=== PATIENT | male | born 2000 | race Caucasian/White ===

== ENCOUNTER 2020-02-20 20:26 | Emergency (ER) | payer MEDICAID, OTHER ==
[~2020-02-20] VITALS: Ht 172.7 cm; Wt 54.7 kg
[~2020-02-20 20:26] MED LIST: INHALER PRN
[2020-02-20 20:29] VITALS: BP 114/91
[2020-02-20] MEDS ORDERED: TAM75C PO (21:18)
== END 2020-02-20 21:36 | disposition home or self-care (01) ==
LOC: ER 20:27
DX: B34.9 Viral infection, unspecified (principal); R50.9 Fever, unspecified; R51.9 Headache, unspecified; Z20.828 Contact with and (suspected) exposure to other viral communicable diseases; J45.909 Unspecified asthma, uncomplicated
CPT/HCPCS: 36415; 71045; 87502; 87503; 87635; 99284